=== PATIENT | female | born 2000 | race African-American/Black ===

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

== ENCOUNTER 2024-01-04 17:55 | Emergency (ER) | payer MEDICAID ==
[~2024-01-04] VITALS: Ht 157.5 cm; Wt 59.0 kg
[2024-01-04 17:57] VITALS: O2SAT 99
[2024-01-04] MEDS: ACETAMINOPHEN 500MG TABLET PO ONE (18:15)
[2024-01-04] MEDS: LIDOCAINE HCL 1% 20ML VIAL (Pyxis) INJ INFIL ONE (18:22)
[2024-01-04] MEDS: POVIDONE-IODINE 10% TOPICAL SOLN 240ML TOP ONE (18:23)
[2024-01-04] MEDS: BACITRACIN ZINC OINT UDPKT TOP ONE (18:23)
[2024-01-04] MEDS: KETOROLAC 30MG/ML VIAL IM ONE (18:44)
[2024-01-04 21:17] VITALS: BP 104/50; PULSE 66; RESP 16; TEMP 98.5
== END 2024-01-04 20:45 | disposition home or self-care (01) ==
LOC: ER 17:55
DX: M79.10 Myalgia, unspecified site (principal); R55 Syncope and collapse; Z88.0 Allergy status to penicillin; V19.49XA Pedal cycle driver injured in collision with other motor vehicles in traffic accident, initial encounter; Y93.89 Activity, other specified; Y92.89 Other specified places as the place of occurrence of the external cause; Y99.8 Other external cause status
CPT/HCPCS: 81025; 70450; 12011; 96372; 99285; J1885; J3490; Z7610 ×2